=== PATIENT | male | born 1940 | race Caucasian/White ===

== ENCOUNTER → 2017-01-08 | Outpatient (CLI) | payer MEDICARE, BC ==
[2017-01-08 17:32] LABS: CHLORIDE,CL 106 mmol/L (98-110); SODIUM,NA 140 mmol/L (136-146)
== END | disposition home or self-care (01) ==
LOC: MW.CHFP 16:34
PROVIDERS: ATTEND Emergency Medicine
DX: D50.9 Iron deficiency anemia, unspecified (principal); E11.9 Type 2 diabetes mellitus without complications; I10 Essential (primary) hypertension
CPT/HCPCS: 36415; 80048; 83036; 83550; 85027; 99214

== ENCOUNTER 2023-04-30 11:33 | Emergency (ER) | payer MEDICARE, BC | END 2023-04-30 12:21 | disposition left against medical advice (07) | LOC: MW.ED 11:33 | DX: Z53.21 Procedure and treatment not carried out due to patient leaving prior to being seen by health care provider (principal) ==